=== PATIENT | male | born 1990 | race African-American/Black ===

== ENCOUNTER 2019-03-23 17:24 | Emergency (ER) | payer SELFPAY ==
[~2019-03-23] VITALS: Ht 188 cm; Wt 74.8 kg
[2019-03-23 17:40] VITALS: BP 142/88
--- NOTE | 2019-03-23 18:06 | PHYS DOC ---
Past Medical History Past Medical History: No Pertinent History Past Surgical History: No Surgical History Smoking: Cigarettes, Less than 1pk/day Alcohol Use: None Drug Use: Marijuana Adult General Chief Complaint Chief Complaint: COUGH HPI HPI Patient is a 28 year old AA male who presents to the emergency department with complaints of nasal congestion, sinus pressure, a dry cough, bilateral ear pain, sore throat, tactile fever, chills, and chest pain with coughing for the last 3 days. Patient denies any shortness of breath, wheezing, abdominal pain, nausea, vomiting, diarrhea, difficulty swallowing, or rash. He currently rates his discomfort a 6 out of 10 on the pain scale, he denies any alleviating or exacerbating factors. Patient states that he recently moved here from [place] and feels like this might be due to allergies or something. All other ROS is neg unless otherwise noted in HPI. Review of Systems Review of Systems See Above Allergies Allergies Allergies Coded Allergies Type Severity Reaction Last Updated Verified No Known Drug Allergies 03/23/19 No Physical Exam Physical Exam See Above Constitutional: Well developed, well nourished, no acute distress, non-toxic appearance. [] HENT: Normocephalic, atraumatic, bilateral external ears normal, bilateral TMs normal, posterior pharynx normal, oropharynx moist, no oral exudates, nose congested bilaterally Eyes: PERRLA, EOMI, conjunctiva normal, no discharge. [] Neck: Normal range of motion, no tenderness, supple, no stridor. [] Cardiovascular:Heart rate regular rhythm, no murmur [] Lungs & Thorax: Bilateral breath sounds clear to auscultation, Respirations even and unlabored, no retractions, no respiratory distress [] Skin: Warm, dry, no erythema, no rash. [] Back: No tenderness Extremities: No cyanosis, ROM intact, no edema. [] Neurologic: Alert and oriented X 3, no focal deficits noted. [] Psychologic: Affect normal, judgement normal, mood normal. [] Current Patient Data Vital Signs Vital Signs Date Time Temp Pulse Resp B/P (MAP) Pulse Ox O2 Delivery O2 Flow Rate FiO2 03/23/19 17:40 99.2 86 12 142/88 (106) 97 Room Air 99.2 EKG EKG [] Radiology/Procedures Radiology/Procedures [] Course & Med Decision Making Course & Med Decision Making Pertinent Labs and Imaging studies reviewed. (See chart for details) dx: medical screening exam A medical screening exam was performed, patient was found to have no emergent medical condition. The plan of care would've included a prescription for Tessalon Perles and URI instructions. However, the patient eloped after talking with registration. [] [] Dragon Disclaimer Dragon Disclaimer This electronic medical record was generated, in whole or in part, using a voice recognition dictation system. Departure Departure Impression: Primary Impression: Encounter for medical screening examination Disposition: HOME, SELF-CARE Condition: STABLE (Pt eloped after speaking with registration) Referrals: NO PCP (PCP) ROSANNA KEENE REGISTERED NURSE MATERNITY Mar 23, 2019 18:06
== END 2019-03-23 18:05 | disposition home or self-care (01) ==
LOC: ER 17:24
DX: J02.9 Acute pharyngitis, unspecified (principal); R50.9 Fever, unspecified; R07.89 Other chest pain; H92.03 Otalgia, bilateral; F17.210 Nicotine dependence, cigarettes, uncomplicated; F12.90 Cannabis use, unspecified, uncomplicated
CPT/HCPCS: 99281